=== PATIENT | male | born 1945 | race Caucasian/White ===

== ENCOUNTER → 2017-04-25 | Outpatient (CLI) | payer MEDICARE ==
[~2017-04-25] MED LIST: AMIO200T44 PO; APIX5TAB PO; ASPI-1197 PO; CEPH500C2 PO; DICLOFENAC PO; EZET10 PO; FURO20TA6 PO; GLUCOSAMINE PO; LEVO250T2 PO; LISI1TAB13 PO; MELOXICAM PO; METO25 PO; MULT-1192 PO; NYST5ORA7 PO; OMEP20TA2 PO; POTA10CA44 PO; PROSTATE PO; REGADENOSON 0.4 MG/5 ML PF SYG IVP SCH; TAMS0.4C32 PO; UBID100C10 PO; [UNRECOGNIZED DRUG - CODE] PO; [UNRECOGNIZED DRUG - OTHER] PO
== END | disposition home or self-care (01) ==
LOC: SHCH 08:41 → EDSTATUS 09:10
PROVIDERS: ATTEND Internal Medicine Cardiovascular Disease
DX: I35.0 Nonrheumatic aortic (valve) stenosis (principal); I20.8 Other forms of angina pectoris
CPT/HCPCS: 78452; 93017; 93306; 96374; A9500 ×2; J2785

== ENCOUNTER 2017-04-28 06:15 | Inpatient (IN) | payer MEDICARE ==
[2017-04-27 10:31] LABS: EOSINOPHILS % (AUTO) 2.6 % (0.0-8.0); HEMATOCRIT 46.7 % (42-54); LYMPHOCYTES % (AUTO) 27.1 % (21.0-51.0); MEAN CORPUSCULAR HEMOGLOBIN 30.8 pg (27.0-33.0); MEAN CORPUSCULAR HGB CONC 34.8 g/dL (32.0-36.0); MEAN CORPUSCULAR VOLUME 88.6 fL (79-99); NEUTROPHILS % (AUTO) 58.3 % (40.0-77.0); PLATELET COUNT (AUTO) 273 K/uL (130-400); RED BLOOD CELL COUNT(AUTO) 5.27 MIL/uL (4.50-6.20); RED CELL DISTRIBUTION WIDTH 13.9 % (11.0-15.5); WHITE BLOOD COUNT (AUTO) 5.9 K/uL (4.8-10.8)
[2017-04-27 10:37] VITALS: BP 134/81
[2017-04-27 10:41] LABS: APPEARANCE,URINE Clear (CLEAR); BILIRUBIN,URINE Negative (NEGATIVE); COLOR,URINE Yellow (YELLOW); GLUCOSE, URINE (UA) Negative (NEGATIVE); KETONES,URINE Negative (NEGATIVE); LEUKOCYTE ESTERASE ,URINE Negative (NEGATIVE); NITRATE,URINE Negative (NEGATIVE); OCCULT BLOOD,URINE Negative (NEGATIVE); PROTEIN,URINE Negative (NEGATIVE); UROBILINOGEN,URINE 0.2 mg/dL (0.2-1.0)
[2017-04-27 10:42] LABS: POTASSIUM 4.2 mmol/L (3.5-5.1)
[2017-04-27 11:25] LABS: INR 0.95 (0.85-1.15); PARTIAL THROMBOPLASTIN TIME 28.5 SEC (26.3-35.5)
[~2017-04-28] VITALS: Ht 170.2 cm; Wt 99.8 kg
[2017-04-28] VITALS (15 sets, daily range): BP systolic 94–125; BP diastolic 41–78
[~2017-04-28 06:15] MED LIST changes: -AMIO200T44 PO; -APIX5TAB PO; -CEPH500C2 PO; -FURO20TA6 PO; -LEVO250T2 PO; -METO25 PO; -NYST5ORA7 PO; +PHARMACY COMMUNICATION MISC SCH; -POTA10CA44 PO; -REGADENOSON 0.4 MG/5 ML PF SYG IVP SCH; -[UNRECOGNIZED DRUG - CODE] PO
[2017-04-28] MEDS ORDERED: SODIUM CHLORIDE 0.9% 1000ML 1,000 ML IV ONE (07:09)
[2017-04-28] MEDS ORDERED: HEPARIN SODIUM 1000UNIT/ML 10ML VIAL ONE (07:41)
[2017-04-28] MEDS ORDERED: BIVALIRUDIN 250 MG/VIAL IV ONE (07:41)
[2017-04-28] MEDS ORDERED: IOPAMIDOL-370 100 ML VIAL IV ONE (07:42)
[2017-04-28] MEDS ORDERED: ISOVUE-370 50ML VIAL IV ONE (07:42)
[2017-04-28] MEDS ORDERED: NITROGLYCERIN 5 MG/ML 10 ML VIAL IV ONE (07:42)
[2017-04-28] MEDS ORDERED: LIDOCAINE HCL-MPF 2% 5ML VIAL ONE (07:43)
[2017-04-28] MEDS ORDERED: MIDAZOLAM HCL 1 MG/ML 2ML VIAL ONE (09:05)
[2017-04-28] MEDS ORDERED: MORPHINE SULFATE 4 MG/1ML SYG ONE (09:06)
[2017-04-28] MEDS ORDERED: MORPHINE SULFATE 2 MG/ML 1ML SYG ONE (09:12)
[2017-04-28] MEDS ORDERED: LIDOCAINE HCL 1% 20 ML VIAL ONE (09:14)
[2017-04-28] MEDS ORDERED: SODIUM CHLORIDE 0.9% 1000ML 1,000 ML IV SCH (09:55)
[2017-04-28] MEDS ORDERED: MAGNESIUM SULFATE 1 GM/2 ML VIAL IM ONE (12:00)
[2017-04-28] MEDS ORDERED: CALCIUM CHLORIDE 100 MG/ML 10 ML SYG IVP ONE (12:00)
[2017-04-28] MEDS ORDERED: HEPARIN SODIUM 1000UNIT/ML 10ML VIAL IV ONE (12:00)
[2017-04-28] MEDS ORDERED: SODIUM BICARB 8.4% 50ML SYRINGE IVP ONE (12:00)
[2017-04-28] MEDS ORDERED: ALBUMIN (HUMAN) 25% 100 ML IV ONE (12:00)
[2017-04-28] MEDS ORDERED: AMINOCAPROIC ACID 250 MG/ML 20 ML VIAL IV ONE (12:00)
[2017-04-28] MEDS ORDERED: MANNITOL 25% 50ML VIAL IV ONE (12:00)
[2017-04-28] MEDS ORDERED: ACETAMINOPHEN EXTRA STRENGTH 500 MG TABLET ONE (14:01)
[2017-04-28] MEDS ORDERED: CEFUROXIME SODIUM 1.5 GM VIAL IVP SCH (14:15)
[2017-04-28] MEDS ORDERED: TRAMADOL HCL 50 MG TABLET PO PRN ×2 (14:15)
[2017-04-28] MEDS ORDERED: ACETAMINOPHEN EXTRA STRENGTH 500 MG TABLET PO PRN (14:15)
[2017-04-28] MEDS ORDERED: WATER FOR INJECTION,STERILE 20 ML VIAL IJ SCH (14:15)
[2017-04-28 14:59] LABS: HEMOGLOBIN A1C 6.1 % (4.0-6.0)
[2017-04-28 15:02] LABS: BILIRUBIN,URINE Negative (NEGATIVE); COLOR,URINE Yellow (YELLOW); GLUCOSE, URINE (UA) Negative (NEGATIVE); KETONES,URINE Negative (NEGATIVE); LEUKOCYTE ESTERASE ,URINE Negative (NEGATIVE); NITRATE,URINE Negative (NEGATIVE); OCCULT BLOOD,URINE Negative (NEGATIVE); PROTEIN,URINE Negative (NEGATIVE)
[2017-04-28 15:04] LABS: CHOLESTEROL 241 mg/dL (<200); HDL CHOLESTEROL 33 mg/dL (29-71); LDL DIRECT 176 mg/dL (0-99); TRIGLYCERIDES 211 mg/dL (30-200)
[2017-04-28 15:29] LABS: APPEARANCE,URINE CLEAR (CLEAR)
[2017-04-28 15:34] LABS: BACTERIA,URINE Rare /HPF (None Seen); RBC,URINE 0-1 /HPF (0-1); SQUAMOUS EPITHELIAL CELL,UR Rare /HPF (0-2); WBC,URINE 0-1 /HPF (0-1)
[2017-04-29] VITALS (22 sets, daily range): BP systolic 94–152; BP diastolic 50–86
[2017-04-29] MEDS ORDERED: CEFUROXIME 1.5GM+NS 100ML 100 ML IV SCH ×2 (08:00→19:45)
[2017-04-29] MEDS ORDERED: OCTYL 2-CYANOACRYLATE 1 EACH TP ONE (08:08)
[2017-04-29] MEDS ORDERED: PAPAVERINE HCL 30 MG/ML 2ML VIAL ONE (08:08)
[2017-04-29] MEDS ORDERED: BACITRACIN 50,000 UNIT VIAL ONE (08:09)
[2017-04-29] MEDS ORDERED: ROCURONIUM BROMIDE 10MG/1ML 5ML VL ONE ×2 (08:09→10:29)
[2017-04-29] MEDS ORDERED: DELNIDO FORMULA 1 BAG IV ONE (08:42)
[2017-04-29] MEDS ORDERED: THROMBIN-JMI 5000 UNIT/VIAL TP ONE (08:59)
[2017-04-29] MEDS ORDERED: GLYCOPYRROLATE 0.2 MG/ML 5 ML VIAL ONE (09:17)
[2017-04-29] MEDS ORDERED: DEXAMETHASONE SOD PHOSPHATE 10MG/ML 1ML VIAL ONE (09:17)
[2017-04-29] MEDS ORDERED: ONDANSETRON HCL 4 MG/2 ML VIAL ONE (09:18)
[2017-04-29] MEDS ORDERED: LIDOCAINE PF 2% 5ML ABBOJECT ONE (09:18)
[2017-04-29] MEDS ORDERED: PROPOFOL 10 MG/ML 20ML VIAL IV ONE (09:18)
[2017-04-29] MEDS ORDERED: MIDAZOLAM HCL 1 MG/ML 2ML VIAL ONE (09:18)
[2017-04-29] MEDS ORDERED: FENTANYL CITRATE PF 50 MCG/1 ML 2ML VIAL ONE ×2 (09:18→12:33)
[2017-04-29] MEDS ORDERED: SUCCINYLCHOLINE 200MG/10ML SYR ONE (09:18)
[2017-04-29] MEDS ORDERED: KETAMINE 50MG/ML SYRINGE 50 MG/ML DISP.SYRIN IV ONE (09:19)
[2017-04-29] MEDS ORDERED: NOREPINEPHRINE BITARTRATE 1 MG/1 ML ML IV ONE (09:23)
[2017-04-29 09:44] LABS: ABG BASE EXCESS -1.3 mmol/L (-2.0-3.0); ABG HCO3 23.1 mmol/L (21.0-28.0); ABG OXYGEN SATURATION 98.3 % (95.0-99.0); ABG PCO2 38 mmHg (35-48)
[2017-04-29] MEDS ORDERED: SODIUM BICARB 50MEQ 50ML VIAL ONE ×3 (10:39→14:47)
[2017-04-29] MEDS ORDERED: SODIUM BICARB 8.4% 50ML SYRINGE ONE (10:44)
[2017-04-29] MEDS ORDERED: SODIUM CHLORIDE 0.9% 500ML 500 ML IV SCH (11:43)
[2017-04-29] MEDS ORDERED: SODIUM CHLORIDE 0.9% 250 ML IV PRN (11:45)
[2017-04-29] MEDS ORDERED: SODIUM CHLORIDE 0.9% 1000ML 1,000 ML IV SCH (11:45)
[2017-04-29] MEDS ORDERED: AMINOCAPROIC ACID 15,000 MG in SODIUM CHLORIDE 0.9% 250 ML IV SCH (11:45)
[2017-04-29] MEDS ORDERED: MORPHINE SULFATE 2 MG/ML 1ML SYG IV PRN (11:45)
[2017-04-29] MEDS ORDERED: NICARDIPINE HCL 100 MG in SODIUM CHLORIDE 0.9% 60 ML IV PRN (11:45)
[2017-04-29] MEDS ORDERED: ALBUMIN (HUMAN) 5% 250 ML IV PRN (11:45)
[2017-04-29] MEDS ORDERED: MAGNESIUM 2GM PREMIX 50ML 50 ML IV PRN (11:45)
[2017-04-29] MEDS ORDERED: EPINEPHRINE 2 MG in SODIUM CHLORIDE 0.9% 250 ML IV PRN (11:45)
[2017-04-29] MEDS ORDERED: NITROGLYCERIN 50 MG/D5% WATER 250 BOT IV SCH (11:45)
[2017-04-29] MEDS ORDERED: CALCIUM GLUCONATE 1 GM in SODIUM CHLORIDE 0.9% 50 ML IV PRN (11:45)
[2017-04-29] MEDS ORDERED: GLUCAGON 1MG KIT 1 MG ML IM PRN (11:45)
[2017-04-29] MEDS ORDERED: DEXTROSE 50%-WATER 50 ML DISP.SYRIN IV PRN (11:45)
[2017-04-29] MEDS ORDERED: SODIUM CHLORIDE 0.9% 10 ML VIAL IVP PRN (11:45)
[2017-04-29] MEDS ORDERED: PROPOFOL 1000 MG/100 ML 100 ML IV PRN (11:45)
[2017-04-29] MEDS ORDERED: MORPHINE SULFATE 4 MG/1ML SYG IV PRN (11:45)
[2017-04-29] MEDS ORDERED: NOREPINEPHRINE 4MG/NS 250ML 250 ML IV PRN (11:45)
[2017-04-29] MEDS ORDERED: ACETAMINOPHEN 650 MG SUPPOSITORY RC PRN (11:45)
[2017-04-29] MEDS ORDERED: POTASSIUM PHOS 15 mMOL+NS250ML 250 ML IV PRN (11:45)
[2017-04-29 11:58] LABS: ABG BASE EXCESS -7.8 mmol/L (-2.0-3.0); ABG OXYGEN SATURATION 98.7 % (95.0-99.0); ABG PCO2 38 mmHg (35-48)
[2017-04-29 12:12] LABS: ABG BASE EXCESS 2.1 mmol/L (-2.0-3.0); ABG HCO3 26.7 mmol/L (21.0-28.0); ABG OXYGEN SATURATION 98.6 % (95.0-99.0); ABG PCO2 42 mmHg (35-48)
[2017-04-29] MEDS ORDERED: FENTANYL CITRATE PF 50 MCG/1 ML 5ML AMP IV ONE (12:35)
[2017-04-29 12:56] LABS: ABG BASE EXCESS -5.2 mmol/L (-2.0-3.0); ABG OXYGEN SATURATION 95.5 % (95.0-99.0); ABG PCO2 44 mmHg (35-48)
[2017-04-29] MEDS ORDERED: CEFUROXIME SODIUM 1.5 GM VIAL ONE (12:57)
[2017-04-29] MEDS ORDERED: EPHEDRINE SULFATE 50 MG/ML AMPULE ONE (13:10)
[2017-04-29] MEDS ORDERED: MORPHINE SULFATE 10 MG/ML 1ML SYG ONE (13:21)
[2017-04-29 13:39] LABS: ABG HCO3 20.3 mmol/L (21.0-28.0); ABG OXYGEN SATURATION 94.7 % (95.0-99.0); ABG PCO2 43 mmHg (35-48)
[2017-04-29 13:42] LABS: HEMATOCRIT 38.8 % (42-54); MEAN CORPUSCULAR HEMOGLOBIN 31.5 pg (27.0-33.0); MEAN CORPUSCULAR HGB CONC 35.1 g/dL (32.0-36.0); MEAN CORPUSCULAR VOLUME 89.7 fL (79-99); PLATELET COUNT (AUTO) 158 K/uL (130-400); RED BLOOD CELL COUNT(AUTO) 4.33 MIL/uL (4.50-6.20); RED CELL DISTRIBUTION WIDTH 13.4 % (11.0-15.5); WHITE BLOOD COUNT (AUTO) 20.4 K/uL (4.8-10.8)
[2017-04-29] MEDS: POTASSIUM CHLORIDE 20MEQ/100ML 100 ML IV PRN ×2 (13:46→15:15)
[2017-04-29 13:53] LABS: CREATININE 1.2 mg/dL (0.5-1.5); PHOSPHORUS 4.6 mg/dL (2.5-4.9); POTASSIUM 3.1 mmol/L (3.5-5.1)
[2017-04-29] MEDS: SODIUM BICARB 8.4% 50ML SYRINGE IV PRN ×2 (13:57→14:06)
[2017-04-29 14:37] LABS: ABG BASE EXCESS -2.3 mmol/L (-2.0-3.0); ABG HCO3 23.5 mmol/L (21.0-28.0); ABG OXYGEN SATURATION 95.3 % (95.0-99.0); ABG PCO2 44 mmHg (35-48)
[2017-04-29] MEDS ORDERED: ALBUMIN (HUMAN) 5% 250 ML IV ONE (14:39)
[2017-04-29] MEDS: INSULIN REGULAR, HUMAN 3ML 100 UNIT in SODIUM CHLORIDE 0.9% 99 ML IV SCH ×2 (15:20)
[2017-04-29] MEDS: AMBU PUMP 1 EACH EACH MISC SCH (15:24)
[2017-04-29] MEDS: HYDROCODONE/ACETAMINOPHEN 5/325 MG TAB PO PRN ×3 (16:15→22:34)
[2017-04-29 16:20] LABS: ABG BASE EXCESS -0.4 mmol/L (-2.0-3.0); ABG HCO3 24.6 mmol/L (21.0-28.0); ABG OXYGEN SATURATION 95.1 % (95.0-99.0); ABG PCO2 42 mmHg (35-48)
[2017-04-29 17:30] LABS: POTASSIUM 4.6 mmol/L (3.5-5.1)
[2017-04-29] MEDS: CEFUROXIME SODIUM 1.5 GM VIAL IVP SCH (20:16)
[2017-04-29 20:19] LABS: ABG BASE EXCESS 2.3 mmol/L (-2.0-3.0); ABG HCO3 26.5 mmol/L (21.0-28.0); ABG OXYGEN SATURATION 96.4 % (95.0-99.0); ABG PCO2 40 mmHg (35-48)
[2017-04-29] MEDS: WATER FOR INJECTION,STERILE 20 ML VIAL IJ SCH (20:23)
[2017-04-29] MEDS: ACETAMINOPHEN 325 MG TAB PO PRN (21:49)
[2017-04-30] VITALS (21 sets, daily range): BP systolic 100–160; BP diastolic 55–87
[2017-04-30] MEDS: HYDROCODONE/ACETAMINOPHEN 5/325 MG TAB PO PRN ×6 (00:57→21:05)
[2017-04-30 04:48] LABS: HEMATOCRIT 34.5 % (42-54); MEAN CORPUSCULAR HEMOGLOBIN 31.4 pg (27.0-33.0); MEAN CORPUSCULAR HGB CONC 35.1 g/dL (32.0-36.0); MEAN CORPUSCULAR VOLUME 89.3 fL (79-99); PLATELET COUNT (AUTO) 133 K/uL (130-400); RED BLOOD CELL COUNT(AUTO) 3.86 MIL/uL (4.50-6.20); WHITE BLOOD COUNT (AUTO) 13.4 K/uL (4.8-10.8)
[2017-04-30 05:12] LABS: CREATININE 1.1 mg/dL (0.5-1.5); MAGNESIUM 1.9 mg/dL (1.80-2.40); PHOSPHORUS 3.6 mg/dL (2.5-4.9); POTASSIUM 3.9 mmol/L (3.5-5.1)
[2017-04-30] MEDS: WATER FOR INJECTION,STERILE 20 ML VIAL IJ SCH ×2 (08:45→20:02)
[2017-04-30] MEDS: CEFUROXIME SODIUM 1.5 GM VIAL IVP SCH ×2 (08:45→20:02)
[2017-04-30] MEDS: PANTOPRAZOLE SODIUM 40 MG TABLET.DR PO SCH (09:15)
[2017-04-30] MEDS ORDERED: ROPIVACAINE 0.2% 2MG/ML 100ML VIAL IJ ONE (14:00)
[2017-04-30] MEDS: POLYETHYLENE GLYCOL 3350 17 GM POWD.PACK PO SCH (14:19)
[2017-04-30] MEDS: INSULIN REGULAR, HUMAN 3ML 100 UNIT in SODIUM CHLORIDE 0.9% 99 ML IV SCH ×2 (16:25)
[2017-04-30] MEDS: FUROSEMIDE 20 MG TABLET PO SCH (16:49)
[2017-04-30] MEDS ORDERED: METOPROLOL TARTRATE 25 MG TAB ONE (17:48)
[2017-04-30] MEDS: METOPROLOL TARTRATE 25 MG TAB PO SCH (17:49)
[2017-04-30] MEDS: AMBU PUMP 1 EACH EACH MISC SCH (19:22)
[2017-04-30] MEDS: EZETIMIBE 10 MG TAB PO SCH (20:02)
[2017-04-30] MEDS: TAMSULOSIN HCL 0.4 MG CAP.ER.24H PO SCH (20:02)
[2017-05-01] VITALS (12 sets, daily range): BP systolic 92–127; BP diastolic 51–80
[2017-05-01] MEDS: HYDROCODONE/ACETAMINOPHEN 5/325 MG TAB PO PRN ×3 (02:25→21:22)
[2017-05-01 05:20] LABS: HEMATOCRIT 29.3 % (42-54); MEAN CORPUSCULAR HEMOGLOBIN 31.7 pg (27.0-33.0); MEAN CORPUSCULAR HGB CONC 35.7 g/dL (32.0-36.0); MEAN CORPUSCULAR VOLUME 88.7 fL (79-99); PLATELET COUNT (AUTO) 92 K/uL (130-400); RED CELL DISTRIBUTION WIDTH 13.9 % (11.0-15.5); WHITE BLOOD COUNT (AUTO) 16.2 K/uL (4.8-10.8)
[2017-05-01 05:26] LABS: CREATININE 1.1 mg/dL (0.5-1.5); POTASSIUM 3.6 mmol/L (3.5-5.1)
[2017-05-01] MEDS: ASPIRIN 81MG TAB.CHEW PO SCH (07:39)
[2017-05-01] MEDS: FUROSEMIDE 20 MG TABLET PO SCH ×2 (07:39→09:04)
[2017-05-01] MEDS: METOPROLOL TARTRATE 25 MG TAB PO SCH ×2 (07:40→21:22)
[2017-05-01] MEDS: POLYETHYLENE GLYCOL 3350 17 GM POWD.PACK PO SCH (07:40)
[2017-05-01] MEDS: PANTOPRAZOLE SODIUM 40 MG TABLET.DR PO SCH (07:41)
[2017-05-01] MEDS: FUROSEMIDE 10 MG/ML 4ML VIAL IV SCH ×2 (08:24→19:47)
[2017-05-01] MEDS ORDERED: ASPIRIN 81MG TAB.CHEW PO SCH (09:00)
[2017-05-01] MEDS ORDERED: EZETIMIBE 10 MG TAB PO SCH (09:00)
[2017-05-01] MEDS: AMBU PUMP 1 EACH EACH MISC SCH (09:04)
[2017-05-01] MEDS: ACETAMINOPHEN 325 MG TAB PO PRN (15:12)
[2017-05-01] MEDS: EZETIMIBE 10 MG TAB PO SCH (21:21)
[2017-05-01] MEDS: TAMSULOSIN HCL 0.4 MG CAP.ER.24H PO SCH (21:21)
[2017-05-02 03:30] VITALS: BP 112/62
[2017-05-02 03:51] LABS: HEMATOCRIT 27.1 % (42-54); MEAN CORPUSCULAR HGB CONC 34.8 g/dL (32.0-36.0); MEAN CORPUSCULAR VOLUME 89.2 fL (79-99); PLATELET COUNT (AUTO) 100 K/uL (130-400); RED BLOOD CELL COUNT(AUTO) 3.04 MIL/uL (4.50-6.20); RED CELL DISTRIBUTION WIDTH 13.7 % (11.0-15.5); WHITE BLOOD COUNT (AUTO) 13.9 K/uL (4.8-10.8)
[2017-05-02 03:56] LABS: CREATININE 1.1 mg/dL (0.5-1.5); POTASSIUM 3.7 mmol/L (3.5-5.1)
[2017-05-02] MEDS ORDERED: ONDANSETRON HCL MDV 20ML 2 MG/ML VIAL ONE (04:44)
[2017-05-02] MEDS: HYDROCODONE/ACETAMINOPHEN 5/325 MG TAB PO PRN (05:07)
[2017-05-02] MEDS: ONDANSETRON HCL 4 MG/2 ML VIAL IV PRN ×2 (05:08→05:11)
[2017-05-02 07:00] VITALS: BP 106/62
[2017-05-02] MEDS ORDERED: LIDOCAINE HCL-MPF 1% 2ML VIAL IVP PRN (07:15)
[2017-05-02] MEDS ORDERED: POTASSIUM CHLORIDE 20MEQ/100ML 100 ML IV PRN (07:15)
[2017-05-02] MEDS ORDERED: POTASSIUM CHLORIDE 10% ELIXIR 20 MEQ/15 ML UDCUP PO PRN (07:15)
[2017-05-02] MEDS: PANTOPRAZOLE SODIUM 40 MG TABLET.DR PO SCH (08:18)
[2017-05-02] MEDS: ASPIRIN 81MG TAB.CHEW PO SCH (08:18)
[2017-05-02] MEDS: POLYETHYLENE GLYCOL 3350 17 GM POWD.PACK PO SCH (08:19)
[2017-05-02] MEDS: METOPROLOL TARTRATE 25 MG TAB PO SCH ×2 (08:19→20:51)
[2017-05-02] MEDS: FUROSEMIDE 20 MG TABLET PO SCH (08:19)
[2017-05-02 11:00] VITALS: BP 91/56
[2017-05-02] MEDS ORDERED: PHARMACY COMMUNICATION MISC SCH (15:30)
[2017-05-02] MEDS: AMBU PUMP 1 EACH EACH MISC SCH (15:33)
[2017-05-02 16:00] VITALS: BP 115/73
[2017-05-02] MEDS: FUROSEMIDE 10 MG/ML 4ML VIAL IV SCH (16:30)
[2017-05-02 19:59] VITALS: BP 130/67
[2017-05-02] MEDS: EZETIMIBE 10 MG TAB PO SCH (20:50)
[2017-05-02] MEDS: TAMSULOSIN HCL 0.4 MG CAP.ER.24H PO SCH (20:51)
[2017-05-02] MEDS: ACETAMINOPHEN 325 MG TAB PO PRN (20:52)
[2017-05-02 23:20] VITALS: BP 103/68
[2017-05-03 03:37] VITALS: BP 126/75
[2017-05-03] MEDS: HYDROCODONE/ACETAMINOPHEN 5/325 MG TAB PO PRN ×2 (03:52→17:00)
[2017-05-03 03:53] LABS: HEMATOCRIT 26.2 % (42-54); MEAN CORPUSCULAR HEMOGLOBIN 31.6 pg (27.0-33.0); MEAN CORPUSCULAR HGB CONC 35.4 g/dL (32.0-36.0); MEAN CORPUSCULAR VOLUME 89.1 fL (79-99); PLATELET COUNT (AUTO) 136 K/uL (130-400); RED BLOOD CELL COUNT(AUTO) 2.94 MIL/uL (4.50-6.20); RED CELL DISTRIBUTION WIDTH 13.3 % (11.0-15.5); WHITE BLOOD COUNT (AUTO) 11.3 K/uL (4.8-10.8)
[2017-05-03 04:02] LABS: MAGNESIUM 2.1 mg/dL (1.80-2.40); POTASSIUM 3.5 mmol/L (3.5-5.1)
[2017-05-03] MEDS: FUROSEMIDE 10 MG/ML 4ML VIAL IV SCH ×2 (05:08→13:17)
[2017-05-03] MEDS: POTASSIUM CHLORIDE 20 MEQ ERTAB PO PRN ×2 (05:16→07:59)
[2017-05-03 07:46] VITALS: BP 114/63
[2017-05-03] MEDS: ASPIRIN 81MG TAB.CHEW PO SCH (07:59)
[2017-05-03] MEDS: METOPROLOL TARTRATE 25 MG TAB PO SCH ×2 (07:59→20:53)
[2017-05-03] MEDS: PANTOPRAZOLE SODIUM 40 MG TABLET.DR PO SCH (07:59)
[2017-05-03] MEDS: POLYETHYLENE GLYCOL 3350 17 GM POWD.PACK PO SCH (08:05)
[2017-05-03] MEDS: NYSTATIN 100000 UNIT/ML 5ML UDCUP PO SCH ×4 (10:06→20:53)
[2017-05-03] MEDS: FLUCONAZOLE 100 MG TAB PO SCH (10:06)
[2017-05-03 11:29] VITALS: BP 110/70
[2017-05-03] MEDS: AMBU PUMP 1 EACH EACH MISC SCH (12:00)
[2017-05-03 16:00] VITALS: BP 120/71
[2017-05-03 19:39] VITALS: BP 113/74
[2017-05-03] MEDS: TAMSULOSIN HCL 0.4 MG CAP.ER.24H PO SCH (20:53)
[2017-05-03] MEDS: EZETIMIBE 10 MG TAB PO SCH (20:53)
[2017-05-03 23:28] VITALS: BP 95/61
[2017-05-04] MEDS: ACETAMINOPHEN 325 MG TAB PO PRN ×2 (02:31→20:40)
[2017-05-04 04:05] VITALS: BP 117/53
[2017-05-04 04:49] LABS: POTASSIUM 3.4 mmol/L (3.5-5.1)
[2017-05-04] MEDS: HYDROCODONE/ACETAMINOPHEN 5/325 MG TAB PO PRN ×2 (04:55→04:56)
[2017-05-04] MEDS: FUROSEMIDE 10 MG/ML 4ML VIAL IV SCH ×2 (04:58→17:28)
[2017-05-04] MEDS: POTASSIUM CHLORIDE 20 MEQ ERTAB PO PRN (06:14)
[2017-05-04 07:00] VITALS: BP 117/62
[2017-05-04] MEDS ORDERED: LACTATED RINGERS 1000ML 1,000 ML IV SCH (08:00)
[2017-05-04] MEDS ORDERED: CEFAZOLIN 3GM /D5W 100ML 100 ML IV SCH (08:00)
[2017-05-04] MEDS: POLYETHYLENE GLYCOL 3350 17 GM POWD.PACK PO SCH (09:00)
[2017-05-04] MEDS: NYSTATIN 100000 UNIT/ML 5ML UDCUP PO SCH ×4 (09:18→20:41)
[2017-05-04] MEDS: ENOXAPARIN SODIUM 40 MG/0.4 ML SYRINGE SQ SCH (09:19)
[2017-05-04] MEDS: ASPIRIN 81MG TAB.CHEW PO SCH (09:19)
[2017-05-04] MEDS: METOPROLOL TARTRATE 25 MG TAB PO SCH ×2 (09:19→20:41)
[2017-05-04] MEDS: FLUCONAZOLE 100 MG TAB PO SCH (09:20)
[2017-05-04] MEDS: PANTOPRAZOLE SODIUM 40 MG TABLET.DR PO SCH (09:20)
[2017-05-04] MEDS ORDERED: AMIODARONE HCL 150 MG in DEXTROSE 5%-WATER 100 ML IV SCH (09:45)
[2017-05-04] MEDS ORDERED: AMIODARONE HCL 900 MG in DEXTROSE 5%-WATER 500 ML IV SCH (09:45)
[2017-05-04 11:00] VITALS: BP 112/59
[2017-05-04 16:00] VITALS: BP 115/64
[2017-05-04] MEDS: AMBU PUMP 1 EACH EACH MISC SCH (16:28)
[2017-05-04 19:49] VITALS: BP 124/68
[2017-05-04] MEDS: EZETIMIBE 10 MG TAB PO SCH (20:40)
[2017-05-04] MEDS: GUAIFENESIN 600 MG TABLET.ER PO SCH (20:40)
[2017-05-04] MEDS: TAMSULOSIN HCL 0.4 MG CAP.ER.24H PO SCH (20:40)
[2017-05-04] MEDS: POTASSIUM CHLORIDE 20 MEQ ERTAB PO SCH (20:41)
[2017-05-04 23:34] VITALS: BP 113/68
[2017-05-05 03:29] VITALS: BP 113/70
[2017-05-05 04:29] LABS: POTASSIUM 3.7 mmol/L (3.5-5.1)
[2017-05-05 07:59] VITALS: BP 114/57
[2017-05-05] MEDS: NYSTATIN 100000 UNIT/ML 5ML UDCUP PO SCH ×4 (08:24→20:14)
[2017-05-05] MEDS: ENOXAPARIN SODIUM 40 MG/0.4 ML SYRINGE SQ SCH (08:24)
[2017-05-05] MEDS: POLYETHYLENE GLYCOL 3350 17 GM POWD.PACK PO SCH (08:24)
[2017-05-05] MEDS: ASPIRIN 81MG TAB.CHEW PO SCH (08:24)
[2017-05-05] MEDS: FUROSEMIDE 20 MG TABLET PO SCH ×2 (08:25→16:07)
[2017-05-05] MEDS: METOPROLOL TARTRATE 25 MG TAB PO SCH ×2 (08:25→20:16)
[2017-05-05] MEDS: GUAIFENESIN 600 MG TABLET.ER PO SCH ×2 (08:25→20:15)
[2017-05-05] MEDS: FLUCONAZOLE 100 MG TAB PO SCH (08:25)
[2017-05-05] MEDS: PANTOPRAZOLE SODIUM 40 MG TABLET.DR PO SCH (08:25)
[2017-05-05] MEDS: POTASSIUM CHLORIDE 20 MEQ ERTAB PO SCH ×3 (08:26→20:17)
[2017-05-05] MEDS ORDERED: NYST5ORA7 PO (09:17)
[2017-05-05] MEDS ORDERED: METO25 PO (09:17)
[2017-05-05] MEDS: AMIODARONE HCL 200 MG TABLET PO SCH ×2 (10:17→20:15)
[2017-05-05] MEDS: LACTOBACILLUS RHAMNOSUS GG 1 EACH CAP.SPRINK PO SCH (10:17)
[2017-05-05 11:43] VITALS: BP 98/65
[2017-05-05] MEDS: CEPHALEXIN 500 MG CAPSULE PO SCH ×2 (13:32→20:13)
[2017-05-05 16:18] VITALS: BP 120/70
[2017-05-05 19:16] VITALS: BP 129/72
[2017-05-05] MEDS: TAMSULOSIN HCL 0.4 MG CAP.ER.24H PO SCH (20:13)
[2017-05-05] MEDS: EZETIMIBE 10 MG TAB PO SCH (20:14)
[2017-05-05] MEDS: ACETAMINOPHEN 325 MG TAB PO PRN (20:16)
[2017-05-05 23:13] VITALS: BP 101/62
[2017-05-06 03:34] VITALS: BP 117/70
[2017-05-06 03:59] LABS: CREATININE 0.9 mg/dL (0.5-1.5); POTASSIUM 4.2 mmol/L (3.5-5.1)
[2017-05-06] MEDS: ACETAMINOPHEN 325 MG TAB PO PRN (05:20)
[2017-05-06] MEDS: AMIODARONE HCL 200 MG TABLET PO SCH ×2 (06:32→20:54)
[2017-05-06 07:55] VITALS: BP 110/71
[2017-05-06] MEDS ORDERED: AMIO200T44 PO (08:20)
[2017-05-06] MEDS ORDERED: CEPH500C2 PO (08:20)
[2017-05-06] MEDS ORDERED: POTA10CA44 PO (08:24)
[2017-05-06] MEDS ORDERED: FURO20TA6 PO (08:24)
[2017-05-06] MEDS: POLYETHYLENE GLYCOL 3350 17 GM POWD.PACK PO SCH (09:00)
[2017-05-06] MEDS: GUAIFENESIN 600 MG TABLET.ER PO SCH ×2 (09:00→20:53)
[2017-05-06] MEDS: LACTOBACILLUS RHAMNOSUS GG 1 EACH CAP.SPRINK PO SCH (09:30)
[2017-05-06] MEDS: POTASSIUM CHLORIDE 20 MEQ ERTAB PO SCH ×3 (09:30→20:52)
[2017-05-06] MEDS: NYSTATIN 100000 UNIT/ML 5ML UDCUP PO SCH ×4 (09:51→20:51)
[2017-05-06] MEDS: PANTOPRAZOLE SODIUM 40 MG TABLET.DR PO SCH (09:51)
[2017-05-06] MEDS: CEPHALEXIN 500 MG CAPSULE PO SCH ×3 (09:51→20:53)
[2017-05-06] MEDS: FUROSEMIDE 20 MG TABLET PO SCH ×2 (09:52→16:15)
[2017-05-06] MEDS: ASPIRIN 81MG TAB.CHEW PO SCH (09:53)
[2017-05-06] MEDS: ENOXAPARIN SODIUM 40 MG/0.4 ML SYRINGE SQ SCH (09:53)
[2017-05-06] MEDS: METOPROLOL TARTRATE 25 MG TAB PO SCH ×2 (09:53→20:54)
[2017-05-06 11:17] LABS: BASOPHILS % (AUTO) 0.3 % (0.0-5.0); HEMATOCRIT 29.7 % (42-54); LYMPHOCYTES % (AUTO) 19.4 % (21.0-51.0); MEAN CORPUSCULAR HEMOGLOBIN 31.4 pg (27.0-33.0); MEAN CORPUSCULAR HGB CONC 34.7 g/dL (32.0-36.0); MEAN CORPUSCULAR VOLUME 90.5 fL (79-99); MONOCYTES % (AUTO) 10.1 % (3.0-13.0); NEUTROPHILS % (AUTO) 68.2 % (40.0-77.0); NUCLEATED RED BLOOD CELLS 0.1 % (0.0-0.19); PLATELET COUNT (AUTO) 311 K/uL (130-400); RED BLOOD CELL COUNT(AUTO) 3.28 MIL/uL (4.50-6.20); RED CELL DISTRIBUTION WIDTH 13.9 % (11.0-15.5); WHITE BLOOD COUNT (AUTO) 11.1 K/uL (4.8-10.8)
[2017-05-06 11:26] VITALS: BP 110/60
[2017-05-06] MEDS: HYDROCODONE/ACETAMINOPHEN 5/325 MG TAB PO PRN (12:32)
[2017-05-06 15:32] VITALS: BP 106/69
[2017-05-06] MEDS: LIDOCAINE 5% TOPICAL PATCH TP SCH (16:14)
[2017-05-06 19:28] VITALS: BP 111/69
[2017-05-06] MEDS: EZETIMIBE 10 MG TAB PO SCH (20:54)
[2017-05-06] MEDS: APIXABAN 5 MG TABLET PO SCH (20:54)
[2017-05-06] MEDS: TAMSULOSIN HCL 0.4 MG CAP.ER.24H PO SCH (20:54)
[2017-05-06 23:11] VITALS: BP 113/69
[2017-05-07] MEDS: ACETAMINOPHEN 325 MG TAB PO PRN (00:04)
[2017-05-07 03:29] VITALS: BP 113/66
[2017-05-07 07:43] VITALS: BP 112/63
[2017-05-07] MEDS ORDERED: AMIODARONE HCL 150 MG in DEXTROSE 5%-WATER 100 ML IV SCH (08:00)
[2017-05-07] MEDS: PANTOPRAZOLE SODIUM 40 MG TABLET.DR PO SCH (08:07)
[2017-05-07] MEDS: FUROSEMIDE 20 MG TABLET PO SCH (08:08)
[2017-05-07] MEDS: GUAIFENESIN 600 MG TABLET.ER PO SCH (08:08)
[2017-05-07] MEDS: CEPHALEXIN 500 MG CAPSULE PO SCH (08:08)
[2017-05-07] MEDS: APIXABAN 5 MG TABLET PO SCH (08:08)
[2017-05-07] MEDS: METOPROLOL TARTRATE 25 MG TAB PO SCH (08:10)
[2017-05-07] MEDS: POTASSIUM CHLORIDE 20 MEQ ERTAB PO SCH ×2 (08:10→09:30)
[2017-05-07] MEDS: ASPIRIN 81MG TAB.CHEW PO SCH (08:10)
[2017-05-07] MEDS: NYSTATIN 100000 UNIT/ML 5ML UDCUP PO SCH (08:16)
[2017-05-07] MEDS ORDERED: APIX5TAB PO (08:39)
[2017-05-07] MEDS: POLYETHYLENE GLYCOL 3350 17 GM POWD.PACK PO SCH (09:00)
[2017-05-07] MEDS: LIDOCAINE 5% TOPICAL PATCH TP SCH (09:00)
[2017-05-07] MEDS ORDERED: AMIODARONE HCL 200 MG TABLET PO SCH (09:00)
[2017-05-07] MEDS: LACTOBACILLUS RHAMNOSUS GG 1 EACH CAP.SPRINK PO SCH (09:30)
== END 2017-05-07 10:15 | disposition home or self-care (01) | DRG 216 ==
LOC: DAH 06:15 → DAHIP 06:16 → DAH 06:16 → 2AH 17:34 → 2CV 04-29 08:51 → 2CH 04-29 17:49 → 2BH 04-30 16:00 → 2AH 05-01 09:35
PROVIDERS: ADMIT Internal Medicine; ATTEND Internal Medicine
PROC: 4A023N8 Measurement of Cardiac Sampling and Pressure, Bilateral, Percutaneous Approach (ICD-10-PCS; principal; 2017-04-28)
PROC: B2111ZZ Fluoroscopy of Multiple Coronary Arteries using Low Osmolar Contrast (ICD-10-PCS; 2017-04-28)
PROC: B2151ZZ Fluoroscopy of Left Heart using Low Osmolar Contrast (ICD-10-PCS; 2017-04-28)
PROC: 06BQ0ZZ Excision of Left Saphenous Vein, Open Approach (ICD-10-PCS; 2017-04-29)
PROC: 02RF0JZ Replacement of Aortic Valve with Synthetic Substitute, Open Approach (ICD-10-PCS; 2017-04-29 09:00)
PROC: 021009W Bypass Coronary Artery, One Artery from Aorta with Autologous Venous Tissue, Open Approach (ICD-10-PCS; 2017-04-29 09:00)
PROC: 02100Z9 Bypass Coronary Artery, One Artery from Left Internal Mammary, Open Approach (ICD-10-PCS; 2017-04-29 09:00)
DX: I25.119 Atherosclerotic heart disease of native coronary artery with unspecified angina pectoris (principal); I50.33 Acute on chronic diastolic (congestive) heart failure; B37.0 Candidal stomatitis; D69.6 Thrombocytopenia, unspecified; J98.11 Atelectasis; I50.30 Unspecified diastolic (congestive) heart failure; D62 Acute posthemorrhagic anemia; I48.92 Unspecified atrial flutter; E83.51 Hypocalcemia; I11.0 Hypertensive heart disease with heart failure; D72.829 Elevated white blood cell count, unspecified; E78.5 Hyperlipidemia, unspecified; E87.6 Hypokalemia; I35.0 Nonrheumatic aortic (valve) stenosis; I48.91 Unspecified atrial fibrillation; I49.1 Atrial premature depolarization; I70.0 Atherosclerosis of aorta; I80.8 Phlebitis and thrombophlebitis of other sites; M48.00 Spinal stenosis, site unspecified; N40.0 Benign prostatic hyperplasia without lower urinary tract symptoms; Z79.01 Long term (current) use of anticoagulants; Z79.82 Long term (current) use of aspirin; Z79.899 Other long term (current) drug therapy; Z87.891 Personal history of nicotine dependence
CPT/HCPCS: 36415; 36600; 71045; 76998; 78452; 80048; 80061; 81001; 81003; 82330; 82435; 82803; 82947; 82948; 83036; 83605; 83735; 83880; 84100; 84132; 84295; 85018; 85025; 85027; 85347; 85610; 85730; 86850; 86900; 86901; 86922; 88305; 88311; 93005; 93017; 93306; 93318; 93460; 93880; 94002; 94010; 94150; 96374; 97039; A4218; A4606; A7048; A9500; C1760; C1769; C1894; J0171; J0282; J0330; J0583; J0690; J0697; J1100; J1644; J1650; J1815; J1940; J2001; J2150; J2250; J2270; J2405; J2440; J2704; J2785; J2795; J3010; J3475; J3480; J3490; J7030; J7040; J7060; J7120; P9045; P9046; Q9967